=== PATIENT | female | born 1985 | race African-American/Black ===

== ENCOUNTER 2022-02-05 08:31 | Inpatient (IN) | payer OTHER ==
[2022-02-05 10:39] VITALS: BMI 21.6
[2022-02-05] MEDS ORDERED: BENZOCAINE/MENTHOL (CHLORASEPTIC ) LOZENGE MM PRN (11:25)
[2022-02-05] MEDS ORDERED: NICOTINE 10 MG CARTRIDGE (INHALER) IH PRN (11:25)
[2022-02-05] MEDS ORDERED: MAGNESIUM CITRATE 300 ML BOTTLE PO PRN (11:25)
[2022-02-05] MEDS ORDERED: MAGNESIUM HYDROX 2400MG/30ML ORAL SUSPENSION 30 ML CUP PO PRN (11:25)
[2022-02-05] MEDS ORDERED: ACETAMINOPHEN 325 MG TABLET (FP) PO PRN ×2 (11:25)
[2022-02-05] MEDS ORDERED: LOPERAMIDE HCL 2 MG CAPSULE PO PRN (11:25)
[2022-02-05] MEDS ORDERED: chlordiazePOXIDE HCL 25 MG CAPSULE PO PRN (11:25)
[2022-02-05] MEDS ORDERED: DICYCLOMINE HCL 10 MG CAPSULE PO PRN (11:25)
[2022-02-05] MEDS ORDERED: BISMUTH SUBSALICYLATE 524 MG/30 ML PO PRN (11:25)
[2022-02-05] MEDS ORDERED: ONDANSETRON *ODT* 4 MG TABLET SL PRN (11:25)
[2022-02-05] MEDS ORDERED: IBUPROFEN 400 MG TABLET (FP) PO PRN (11:25)
[2022-02-05] MEDS: PRENATAL VITAMINS W/ FOLIC ACID TABLET (FP) PO SCH (12:56)
[2022-02-05] MEDS: NICOTINE 21 MG/24 HOURS TOPICAL PATCH TD SCH (12:57)
[2022-02-05] MEDS: hydrOXYzine PAMOATE 25 MG CAPSULE (FP) PO SCH ×3 (14:18→23:29)
[2022-02-05 16:47] LABS: HEMATOCRIT 36.3 % (32.4-45.2); HEMOGLOBIN 12.2 GM/dL (10.7-15.3); MCHC 33.5 g/dl (32.0-36.0); MEAN CELL VOLUME 86.5 fl (80-96); MEAN PLT VOLUME 9.5 fl (7.5-11.1); PLATELET COUNT 271 10^3/uL (134-434); RDW 20.3 % (11.6-15.6); WHITE BLOOD COUNT 6.2 K/mm3 (4.0-10.0)
[2022-02-05 17:11] LABS: CALCIUM 8.7 mg/dL (8.5-10.1)
[2022-02-05 17:12] LABS: ALBUMIN 3.6 g/dl (3.4-5.0); BLOOD UREA NITROGEN 11.3 mg/dL (7-18)
[2022-02-05 17:16] LABS: TOT PROT 7.3 g/dl (6.4-8.2)
[2022-02-05 17:17] LABS: BILIRUBIN,TOTAL 0.2 mg/dL (0.2-1)
[2022-02-05] MEDS: chlordiazePOXIDE HCL 25 MG CAPSULE PO SCH ×2 (17:37→23:29)
[2022-02-05] MEDS: THIAMINE HCL 100 MG TABLET (FP) PO SCH (23:29)
[2022-02-05] MEDS: MELATONIN 5 MG TABLETS PO SCH (23:29)
[2022-02-05] MEDS: METHOCARBAMOL 500 MG TABLET PO PRN (23:29)
[2022-02-06] MEDS: chlordiazePOXIDE HCL 25 MG CAPSULE PO SCH ×4 (06:16→22:59)
[2022-02-06] MEDS: hydrOXYzine PAMOATE 25 MG CAPSULE (FP) PO SCH ×5 (06:16→22:58)
[2022-02-06] MEDS: PRENATAL VITAMINS W/ FOLIC ACID TABLET (FP) PO SCH (10:45)
[2022-02-06] MEDS: NICOTINE 21 MG/24 HOURS TOPICAL PATCH TD SCH (10:46)
[2022-02-06] MEDS: MAG HYDROX/AL HYDROX/SIMETH 30 ML UNIT-DOSE CUP PO PRN (17:47)
[2022-02-06] MEDS: THIAMINE HCL 100 MG TABLET (FP) PO SCH (22:58)
[2022-02-06] MEDS: MELATONIN 5 MG TABLETS PO SCH (22:59)
[2022-02-07] MEDS ORDERED: chlordiazePOXIDE HCL 25 MG CAPSULE PO SCH (05:00)
[2022-02-07] MEDS: hydrOXYzine PAMOATE 25 MG CAPSULE (FP) PO SCH ×2 (06:57→10:16)
[2022-02-07 10:07] VITALS: RESP 17
[2022-02-07] MEDS: NICOTINE 21 MG/24 HOURS TOPICAL PATCH TD SCH (10:15)
[2022-02-07] MEDS: PRENATAL VITAMINS W/ FOLIC ACID TABLET (FP) PO SCH (10:15)
[2022-02-07] MEDS ORDERED: LORazepam 1 MG TABLET PO PRN (12:48)
[2022-02-07] MEDS ORDERED: COLLOIDAL OATMEAL 1 BAR EACH TP PRN (12:48)
[2022-02-07] MEDS: IBUPROFEN 600 MG TABLET (FP) PO PRN ×2 (12:52→22:09)
[2022-02-07] MEDS: SULFAMETHOXAZOLE/TRIMETHOPRIM 800MG/160MG D.S. TABLET PO SCH ×2 (13:57→22:07)
[2022-02-07] MEDS: MAG HYDROX/AL HYDROX/SIMETH 30 ML UNIT-DOSE CUP PO PRN (14:30)
[2022-02-07 17:38] LABS: EPI CELLS >36 /uL (0-25.1); HYALINE CASTS 11 /uL (0-3.1); URINE APPEARANCE CLOUDY; URINE BACTERIA 644 /uL (0-1359); URINE BILIRUBIN NEGATIVE (NEGATIVE); URINE COLOR DK YELLOW; URINE GLUCOSE (UA) NEGATIVE (NEGATIVE); URINE KETONE 1+ (NEGATIVE); URINE LEUK ESTERASE 2+ (NEGATIVE); URINE NITRITE NEGATIVE (NEGATIVE); URINE PROTEIN TRACE (NEGATIVE); URINE UROBILINOGEN 0.2 mg/dL (0.2-1.0); URINE WBC 196 /uL (0-25.8)
[2022-02-07 18:43] LABS: URINE RBC 26.2 /uL (0-23.9)
[2022-02-07 18:44] VITALS: TEMP 97
[2022-02-07 18:45] LABS: URINE CRYSTALS MANY /hpf
[2022-02-07] MEDS: METHOCARBAMOL 500 MG TABLET PO PRN (19:00)
[2022-02-07] MEDS: LORazepam 2 MG TABLET PO PRN ×2 (19:00→22:07)
[2022-02-07] MEDS: MELATONIN 5 MG TABLETS PO SCH (22:07)
[2022-02-07] MEDS: THIAMINE HCL 100 MG TABLET (FP) PO SCH (22:07)
[2022-02-08] MEDS ORDERED: chlordiazePOXIDE HCL 10 MG CAPSULE PO PRN
[2022-02-08] MEDS ORDERED: LORazepam 1 MG TABLET PO SCH (05:00)
[2022-02-08] MEDS ORDERED: chlordiazePOXIDE HCL 10 MG CAPSULE PO SCH (05:00)
[2022-02-08 07:19] VITALS: BP 138/82; PULSE 72
[2022-02-08] MEDS ORDERED: AMOXICILLIN 500 MG CAPSULE (FP) PO SCH (14:00)
[2022-02-09] MEDS ORDERED: LORazepam 0.5 MG TABLET PO PRN
[2022-02-09] MEDS ORDERED: chlordiazePOXIDE HCL 10 MG CAPSULE PO SCH (05:00)
[2022-02-09] MEDS ORDERED: LORazepam 0.5 MG TABLET PO SCH (05:00)
[2022-02-10] MEDS ORDERED: chlordiazePOXIDE HCL 10 MG CAPSULE PO ONE (05:00)
[2022-02-10] MEDS ORDERED: LORazepam 0.5 MG TABLET PO ONE (05:00)
== END 2022-02-08 08:25 | disposition left against medical advice (07) | DRG 770 ==
LOC: YASAS 08:31 → Y6N 11:44
PROVIDERS: ADMIT Allergy & Immunology; ATTEND Surgery
PROC: HZ2ZZZZ Detoxification Services for Substance Abuse Treatment (ICD-10-PCS; principal; 2022-02-05)
DX: F10.230 Alcohol dependence with withdrawal, uncomplicated (principal); F14.20 Cocaine dependence, uncomplicated; F17.210 Nicotine dependence, cigarettes, uncomplicated; F19.24 Other psychoactive substance dependence with psychoactive substance-induced mood disorder; G47.00 Insomnia, unspecified; I10 Essential (primary) hypertension; N39.0 Urinary tract infection, site not specified
CPT/HCPCS: 36415; 80053; 81003; 81025; 85027; 86780; C9803-CS; U0003; U0005

== ENCOUNTER 2024-03-01 13:07 | Inpatient (IN) | payer OTHER ==
[2024-03-01 14:22] VITALS: BMI 24.2
[2024-03-01] MEDS ORDERED: ACETAMINOPHEN 325 MG TABLET (FP) PO PRN (17:05)
[2024-03-01] MEDS ORDERED: guaiFENesin 600 MG TABLET.ER (FP) PO PRN (17:05)
[2024-03-01] MEDS ORDERED: NICOTINE POLACRILEX 2 MG LOZENGE BC PRN (17:05)
[2024-03-01] MEDS ORDERED: BISMUTH SUBSALICYLATE 524 MG/30 ML PO PRN (17:05)
[2024-03-01] MEDS ORDERED: MAGNESIUM HYDROX 2400MG/30ML ORAL SUSPENSION 30 ML CUP PO PRN (17:05)
[2024-03-01] MEDS ORDERED: ONDANSETRON *ODT* 4 MG TABLET SL PRN (17:05)
[2024-03-01] MEDS ORDERED: IBUPROFEN 400 MG TABLET (FP) PO PRN (17:05)
[2024-03-01] MEDS ORDERED: POLYETHYLENE GLYCOL (HEALTHYLAX) 3350 17 GM PACKET PO PRN (17:05)
[2024-03-01] MEDS ORDERED: P-EPHED 60MG/TRIPROLIDI 2.5MG TABLET PO PRN (17:05)
[2024-03-01] MEDS ORDERED: LOPERAMIDE HCL 2 MG CAPSULE PO PRN (17:05)
[2024-03-01] MEDS ORDERED: BENZOCAINE/MENTHOL (CHLORASEPTIC ) LOZENGE MM PRN (17:05)
[2024-03-01] MEDS ORDERED: NICOTINE POLACRILEX 2 MG GUM BUC PRN (17:05)
[2024-03-01] MEDS ORDERED: BENZONATATE 200 MG CAPSULE PO PRN (17:05)
[2024-03-01] MEDS: IBUPROFEN 600 MG TABLET (FP) PO PRN (18:41)
[2024-03-01] MEDS: METHOCARBAMOL 500 MG TABLET PO PRN (18:41)
[2024-03-01] MEDS: MAG HYDROX/AL HYDROX/SIMETH 30 ML UNIT-DOSE CUP PO PRN (21:46)
[2024-03-01] MEDS: hydrOXYzine PAMOATE 25 MG CAPSULE (FP) PO PRN (21:47)
[2024-03-01] MEDS: MELATONIN 5 MG TABLETS PO SCH (21:47)
[2024-03-01] MEDS: THIAMINE 100 MG TABLET PO SCH (21:47)
[2024-03-02] MEDS: PRENATAL VITAMINS W/ FOLIC ACID TABLET (FP) PO SCH (10:29)
[2024-03-02] MEDS: NICOTINE 14 MG/24 HOURS TOPICAL PATCH TD SCH (10:31)
[2024-03-02] MEDS: LORazepam 2 MG TABLET PO SCH (10:32)
[2024-03-02] MEDS: LISINOPRIL 10 MG TABLET PO SCH (10:32)
[2024-03-02 15:56] LABS: HEMATOCRIT 39.1 % (32.4-45.2); HEMOGLOBIN 12.5 GM/dL (10.7-15.3); MEAN CELL VOLUME 90.8 fl (80-96); MEAN PLT VOLUME 10.5 fl (7.5-11.1); PLATELET COUNT 184 10^3/uL (134-434); RBC 4.31 M/mm3 (3.60-5.2); RDW 22.3 % (11.6-15.6); WHITE BLOOD COUNT 4.2 K/mm3 (4.0-10.0)
[2024-03-02 16:05] LABS: CHLORIDE 107 mmol/L (98-107); POTASSIUM 4.5 mmol/L (3.5-5.1); SODIUM 139 mmol/L (136-145)
[2024-03-02 16:14] LABS: ALBUMIN 3.2 g/dl (3.4-5.0); ANION GAP 9 mmol/L (4-13); CO2 23 mmol/L (21-32); GLUCOSE,RANDOM 122 mg/dL (74-106)
[2024-03-02 16:15] LABS: BLOOD UREA NITROGEN 12.9 mg/dL (7-18)
[2024-03-02 16:17] LABS: CREATININE 0.8 mg/dL (0.55-1.3)
[2024-03-02 16:18] LABS: SGOT/AST 12 U/L (15-37); SGPT/ALT 23 U/L (13-61)
[2024-03-02 16:19] LABS: BILIRUBIN,TOTAL 0.3 mg/dL (0.2-1); TOT PROT 6.6 g/dl (6.4-8.2)
[2024-03-02 16:20] LABS: ALK PHOS 54 U/L (45-117)
[2024-03-02] MEDS: LURASIDONE HCL 20 MG TABLET PO SCH (18:54)
[2024-03-02] MEDS: DICYCLOMINE HCL 10 MG CAPSULE PO PRN (20:13)
[2024-03-02] MEDS: PRAZOSIN HCL 1 MG CAPSULE PO SCH (22:11)
[2024-03-02] MEDS: DIVALPROEX SODIUM 500 MG TABLET E.C. PO SCH (22:12)
[2024-03-02] MEDS: BENZTROPINE MESYLATE 1 MG TABLET PO SCH (22:12)
[2024-03-03] MEDS ORDERED: ESCITALOPRAM OXALATE 10 MG TABLET ONE (10:13)
[2024-03-03] MEDS: DIVALPROEX SODIUM 250 MG TABLET E.C. PO SCH (10:14)
[2024-03-03] MEDS: ESCITALOPRAM OXALATE 20 MG TABLET PO SCH (10:15)
[2024-03-04] MEDS: LORazepam 1 MG TABLET PO SCH (05:31)
[2024-03-04] MEDS: LORazepam 1 MG TABLET PO PRN (06:06)
[2024-03-04] MEDS ORDERED: ESCITALOPRAM OXALATE 10 MG TABLET ONE (09:34)
[2024-03-04 09:53] VITALS: BP 109/70; PULSE 66; RESP 18; TEMP 98.1
[2024-03-05] MEDS ORDERED: LORazepam 0.5 MG TABLET PO PRN
[2024-03-05] MEDS ORDERED: LORazepam 0.5 MG TABLET PO SCH (05:00)
[2024-03-06] MEDS ORDERED: LORazepam 0.5 MG TABLET PO ONE (05:00)
== END 2024-03-04 11:11 | disposition home or self-care (01) | DRG 774 ==
LOC: YASAS 13:07 → Y6N 17:50
PROVIDERS: ADMIT Allergy & Immunology; ATTEND Surgery
PROC: HZ2ZZZZ Detoxification Services for Substance Abuse Treatment (ICD-10-PCS; principal; 2024-03-01)
DX: F10.230 Alcohol dependence with withdrawal, uncomplicated (principal); F14.20 Cocaine dependence, uncomplicated; F17.210 Nicotine dependence, cigarettes, uncomplicated; F31.9 Bipolar disorder, unspecified; F41.9 Anxiety disorder, unspecified; G47.00 Insomnia, unspecified; I10 Essential (primary) hypertension; Z56.0 Unemployment, unspecified; Z59.00 Homelessness unspecified
CPT/HCPCS: 36415; 80053; 80305; 80307; 81025; 85027; 86780; 93005; 93010